=== PATIENT | female | born 1960 | race Caucasian/White ===

== ENCOUNTER 2021-10-07 12:13 | Emergency (ER) | payer OTHER ==
[2021-10-07 12:19] VITALS: BP 125/53; PULSE 76
[2021-10-07] MEDS ORDERED: traMADol 50 MG Tab PO ONE (12:46)
--- NOTE | 2021-10-07 13:18 | EDM.PDOC ---
ED HPI GENERAL MEDICAL PROBLEM - General Chief Complaint: Lower Extremity Injury/Pain Stated Complaint: L ankle pain Time Seen by Provider: 10/07/21 12:35 Source of Information: Reports: Patient History Limitations: Reports: No Limitations - History of Present Illness INITIAL COMMENTS - FREE TEXT/NARRATIVE: Rolled left ankle while walking across room at home today. No other acute changes/injuries. Painful to bear weight. - Related Data Allergies Allergy/AdvReac Type Severity Reaction Status Date / Time hydrocodone Allergy Stomach Verified 09/23/18 16:29 Upset Penicillins Allergy Hives Verified 09/23/18 16:29 NSAIDS (Non-Steroidal AdvReac Nausea and Verified 10/07/21 12:16 Anti-Inflamma Vomiting Home Meds: Home Meds Atenolol [Tenormin] 0.5 tab PO BEDTIME 04/01/14 [History] Montelukast [Singulair] 10 mg PO DAILY 04/01/14 [History] Acetaminophen [Tylenol] 650 mg PO Q6H PRN 09/23/16 [History] Albuterol [Proventil HFA] 2 puff INH Q4H PRN 09/23/16 [History] Fluticasone Propionate [Flonase] 1 spray NASBOTH DAILY 09/23/16 [History] Fluticasone Propionate [Flovent HFA 44 MCG] 2 puff INH BID 09/23/16 [History] Solifenacin Succinate [Vesicare] 10 mg PO DAILY 09/23/16 [History] Tamsulosin [Flomax] 0.4 mg PO DAILY 09/23/16 [History] diphenhydrAMINE [Benadryl] 25 mg PO QID PRN 09/23/16 [History] DULoxetine HCl [Duloxetine HCl] 30 mg PO DAILY 09/23/18 [History] Gabapentin [Neurontin] 200 mg PO BEDTIME 09/23/18 [History] atorvaSTATin Calcium [Atorvastatin Calcium] 20 mg PO DAILY 09/23/18 [History] hydroCHLOROthiazide [Hydrochlorothiazide] 12.5 mg PO DAILY 09/23/18 [History] traMADol [Ultram] 50 mg PO Q6H PRN #8 tab 10/07/21 [Rx] Past Medical History HEENT History: Reports: Impaired Vision, Sinusitis Cardiovascular History: Reports: High Cholesterol, Hypertension, Other (See Below) Other Cardiovascular History: Tachycardia Respiratory History: Reports: Sleep Apnea, Other (See Below) Other Respiratory History: Reactive Airway Disease. Gastrointestinal History: Reports: GI Bleed, Hiatal Hernia Genitourinary History: Reports: Other (See Below) Other Genitourinary History: acute lower UTI on chart as of 09/21/2016, Overactive bladder. Musculoskeletal History: Reports: Arthritis, Back Pain, Chronic, Osteoarthritis, Other (See Below) Other Musculoskeletal History: Left achilles tendinitis, OA of Right knee. Psychiatric History: Reports: Depression Endocrine/Metabolic History: Reports: Vitamin D Deficiency - Past Surgical History HEENT Surgical History: Reports: Adenoidectomy, Oral Surgery, Tonsillectomy, Ot her (See Below) Other HEENT Surgeries/Procedures: Allergic Rhinitis Cardiovascular Surgical History: Reports: Carotid Endarterectomy, Other (See Below) Other Cardiovascular Surgeries/Procedures: Right carotid GI Surgical History: Reports: Appendectomy, Cholecystectomy Female Surgical History: Reports: Lithotripsy/ESWL, Other (See Below) Other Female Surgeries/Procedures: cystoscopy with hydrodistention Musculoskeletal Surgical History: Reports: Arthroscopic Procedure, Knee Replacement Other Musculoskeletal Surgeries/Procedures:: right rotator cuff surgery. left calf achillies tendon seperation surgery Social & Family History - Tobacco Use Tobacco Use Status *Q: Never Tobacco User - Caffeine Use Caffeine Use: Reports: Soda - Recreational Drug Use Recreational Drug Use: No - Living Situation & Occupation Living situation: Reports: , with Family Occupation: Employed Review of Systems - Review of Systems Review Of Systems: See Below Constitutional: Reports: No Symptoms Eyes: Reports: No Symptoms Ears: Reports: No Symptoms Nose: Reports: No Symptoms Mouth/Throat: Reports: No Symptoms Respiratory: Reports: No Symptoms Cardiovascular: Reports: No Symptoms GI/Abdominal: Reports: No Symptoms Musculoskeletal: Reports: Other (left ankle pain) Skin: Reports: No Symptoms Neurological: Denies: Numbness, Tingling Psychiatric: Reports: No Symptoms ED EXAM, GENERAL - Physical Exam Exam: See Below Exam Limited By: No Limitations General Appearance: Alert, Mild Distress, Obese Eye Exam: Bilateral Eye: EOMI, PERRL Ears: Hearing Grossly Normal Nose: No: Nasal Deformity, Nasal Swelling, Nasal Drainage Throat/Mouth: Normal Lips, Normal Voice, No Airway Compromise Head: Atraumatic, Normocephalic Neck: Supple Respiratory/Chest: No Respiratory Distress Cardiovascular: Other (left ankle/foot vascularly intact) Extremities: Normal Capillary Refill, Other (tender over lateral ankle/mild swelling. No deformity. Good cap refill) Neurological: Alert, Oriented Psychiatric: Normal Affect, Normal Mood Skin Exam: Warm, Dry, Intact, Normal Color Course - Vital Signs Last Recorded V/S: Last Vital Signs Temp 36.1 C 10/07/21 12:18 Pulse 76 10/07/21 12:18 Resp 20 10/07/21 12:18 BP 125/53 L 10/07/21 12:18 Pulse Ox 96 10/07/21 12:18 - Orders/Labs/Meds Orders: Active Orders 24 hr Category Date Time Status Ankle Min 3V Lt [CR] Stat Exams 10/07/21 12:17 Taken Meds: Medications Discontinued Medications Generic Name Dose Route Start Last Admin Trade Name Freq PRN Reason Stop Dose Admin Tramadol HCl 50 mg 10/07/21 12:46 Tramadol 50 Mg Tab PO 10/07/21 12:47 ONETIME ONE - Re-Assessments/Exams Free Text/Narrative Re-Assessment/Exam: 10/07/21 13:29 No obvious fracture on xray. Ankle alison wrapped. Patient given pre-jose ankle splint for support and crutches. Single Tramadol. Rx for 8 additional Tramadol. To avoid weight bearing for 2 days then advance activity as tolerated. Precautions reviewed. To follow up for recheck in one week if not significantly improved. Departure - Departure Time of Disposition: 13:14 Disposition: Home, Self-Care 01 Condition: Good Clinical Impression: Left ankle injury Qualifiers: Encounter type: initial encounter Qualified Code(s): S99.912A - Unspecified injury of left ankle, initial encounter - Discharge Information *PRESCRIPTION DRUG MONITORING PROGRAM REVIEWED*: Not Applicable *COPY OF PRESCRIPTION DRUG MONITORING REPORT IN PATIENT ALEX: Not Applicable Prescriptions: traMADol [Ultram] 50 mg PO Q6H PRN #8 tab PRN Reason: Pain Instructions: Crutch Use, Adult, [id number], Ankle Sprain, [id number] Referrals: Claudia Delgado PA-C [Primary Care Provider] - Forms: ED Department Discharge Additional Instructions: Ice/rest/elevation for 2 days. Then advance activity as tolerated as we reviewed in ER. Wear the splint with activity! Remember these things take time to heal. Follow up at [facility] next week if you do not experience significant improvement within 7 days. Tylenol for pain. Take Tramadol one every 6 hours for more severe pain. Follow up otherwise as needed for problems/concerns. Sepsis Event Note (ED) - Evaluation Sepsis Screening Result: No Definite Risk - Focused Exam Vital Signs: Vital Signs Temp Pulse Resp BP Pulse Ox 10/07/21 12:18 36.1 C 76 20 125/53 L 96 - My Orders Last 24 Hours: My Active Orders 10/07/21 12:17 Ankle Min 3V Lt [CR] Stat - Assessment/Plan Last 24 Hours: My Active Orders 10/07/21 12:17 Ankle Min 3V Lt [CR] Stat
== END 2021-10-07 13:45 | disposition home or self-care (01) ==
LOC: LL.ED 12:13
DX: S99.912A Unspecified injury of left ankle, initial encounter (principal); E78.00 Pure hypercholesterolemia, unspecified; I10 Essential (primary) hypertension; M19.90 Unspecified osteoarthritis, unspecified site; Z88.5 Allergy status to narcotic agent; Z88.0 Allergy status to penicillin; Z88.8 Allergy status to other drugs, medicaments and biological substances; Z79.899 Other long term (current) drug therapy; X50.1XXA Overexertion from prolonged static or awkward postures, initial encounter
CPT/HCPCS: 73610-LT; 99283; 99283-25; A9270-GY

== ENCOUNTER 2023-12-28 09:50 | Emergency (ER) | payer OTHER ==
[2023-12-28 10:08] LABS: BASOPHILS ABSOLUTE AUTO 0.09 K/uL (0.00-0.20); BASOPHILS PERCENT AUTO 0.7 % (0.0-2.0); EOSINOPHILS ABSOLUTE AUTO 0.23 K/uL (0.00-0.50); EOSINOPHILS PERCENT AUTO 1.8 % (0.0-5.0); HEMATOCRIT 47.2 % (34.0-46.0); HEMOGLOBIN 15.7 g/dL (11.7-15.5); LYMPHOCYTES ABSOLUTE AUTO 4.02 K/uL (0.50-3.50); LYMPHOCYTES PERCENT AUTO 31.2 % (10.0-50.0); MEAN CORPUSCULAR HEMOGLOBIN 29.8 pg (28.2-33.3); MEAN CORPUSCULAR HGB CONC 33.3 g/dL (31.7-36.0); MEAN CORPUSCULAR VOLUME 89.7 fL (84.0-98.0); MONOCYTES ABSOLUTE AUTO 1.05 K/uL (0.00-1.00); MONOCYTES PERCENT AUTO 8.2 % (2.0-14.0); NEUTROPHILS ABSOLUTE AUTO 7.48 K/uL (1.40-7.00); NEUTROPHILS PERCENT AUTO 58.1 % (45.0-80.0); PLATELET COUNT,PLT 321 K/uL (150-350); RED BLOOD CELL COUNT 5.26 M/uL (3.77-5.09); RED CELL DISTRIBUTION WIDTH 13.9 % (11.2-14.1); WHITE BLOOD CELL COUNT,WBC 12.9 K/uL (4.0-10.2)
[2023-12-28] MEDS ORDERED: Sodium Chloride 0.9% 10 ML Syringe FLUSH PRN (10:08)
[2023-12-28] MEDS: Furosemide 40 MG/4 ML VIAL IVPUSH ONE (10:23)
[2023-12-28] MEDS: Albuterol/Ipratropium 3.0-0.5 MG/3 ML Neb Soln NEB ONE (10:23)
[2023-12-28 10:35] LABS: ALBUMIN 3.9 g/dL (3.4-5.0); BILIRUBIN TOTAL 0.4 mg/dL (0.2-1.0); CALCIUM 9.8 mg/dL (8.5-10.1); CREATININE 1.28 mg/dL (0.51-1.17); EST CRCL DRUG DOSING (CG) 32.31 mL/min; POTASSIUM,K 4.2 mmol/L (3.5-5.1); PROTEIN TOTAL,TP 8.2 g/dL (6.4-8.2)
[2023-12-28 10:45] LABS: CORONAVIRUS COVID-19 NAA NEGATIVE (NEGATIVE); INFLUENZA A NAA NEGATIVE (NEGATIVE); INFLUENZA B NAA NEGATIVE (NEGATIVE); RESPIRATORY SYNCYTIAL VIR NAA NEGATIVE (NEGATIVE)
[2023-12-28 10:51] LABS: PROTHROMBIN TIME 10.1 SEC (9.0-11.1)
[2023-12-28 11:40] VITALS: BP 147/101; PULSE 132
[2023-12-28] MEDS: Iopamidol 755 Mg/ML 100 ML Bottle IVPUSH ONE (13:45)
[2023-12-28] MEDS: Enoxaparin 40 MG/0.4 ML Syringe SUBCUT ONE (14:57)
== END 2023-12-28 15:20 ==
LOC: LL.ED 09:50
DX: R06.02 Shortness of breath (principal); R00.0 Tachycardia, unspecified; I10 Essential (primary) hypertension; E78.00 Pure hypercholesterolemia, unspecified; Z88.0 Allergy status to penicillin; Z88.8 Allergy status to other drugs, medicaments and biological substances; Z79.899 Other long term (current) drug therapy; Z90.49 Acquired absence of other specified parts of digestive tract
CPT/HCPCS: 0241U; 36415; 71045; 73060-RT; 80053; 83880; 84484; 85025; 85610; 93005; 94640; 96372; 96374; 99285-25; J1650; J1940; J7620-GY; Q9967

== ENCOUNTER 2025-01-15 19:29 | Inpatient (IN) | payer OTHER ==
[2025-01-15 19:51] LABS: BASOPHILS ABSOLUTE AUTO 0.03 K/uL (0.00-0.20); BASOPHILS PERCENT AUTO 0.2 % (0.0-2.0); EOSINOPHILS ABSOLUTE AUTO 0.01 K/uL (0.00-0.50); EOSINOPHILS PERCENT AUTO 0.1 % (0.0-5.0); HEMATOCRIT 42.6 % (34.0-46.0); HEMOGLOBIN 14.3 g/dL (11.7-15.5); IMMATURE GRAN ABSOLUTE AUTO 0.08 10^3/uL (0.00-0.04); IMMATURE GRAN PERCENT AUTO 0.4 % (0.0-0.4); LYMPHOCYTES ABSOLUTE AUTO 1.52 K/uL (0.50-3.50); LYMPHOCYTES PERCENT AUTO 7.7 % (10.0-50.0); MEAN CORPUSCULAR HGB CONC 33.6 g/dL (31.7-36.0); MEAN CORPUSCULAR VOLUME 86.4 fL (84.0-98.0); MONOCYTES ABSOLUTE AUTO 1.41 K/uL (0.00-1.00); MONOCYTES PERCENT AUTO 7.1 % (2.0-14.0); NEUTROPHILS ABSOLUTE AUTO 16.68 K/uL (1.40-7.00); NEUTROPHILS PERCENT AUTO 84.5 % (45.0-80.0); PLATELET COUNT,PLT 261 K/uL (150-350); RED BLOOD CELL COUNT 4.93 M/uL (3.77-5.09); RED CELL DISTRIBUTION WIDTH 13.6 % (11.2-14.1); WHITE BLOOD CELL COUNT,WBC 19.7 K/uL (4.0-10.2)
[2025-01-15] MEDS ORDERED: Non-Formulary Medication 1 Each (Levocetirizine Dihydrochloride [Xyzal] 5 MG Tablet) PO SCH (20:00)
[2025-01-15 20:10] LABS: PROTHROMBIN TIME 10.3 SEC (9.0-11.1)
[2025-01-15 20:17] LABS: ALANINE AMINOTRANSFERASE,ALT 34 U/L (12-78); ALBUMIN 3.6 g/dL (3.4-5.0); ALKALINE PHOSPHATASE 84 IU/L (46-116); ANION GAP 14.1 meq/L (7-15); ASPARTATE AMNIOTRANSFERASE,AST 33 U/L (15-37); BILIRUBIN TOTAL 0.6 mg/dL (0.2-1.0); BLOOD UREA NITROGEN,BUN 23 mg/dL (7-18); CALCIUM 9.4 mg/dL (8.5-10.1); CARBON DIOXIDE,CO2 21.9 mmol/L (21.0-32.0); CHLORIDE,CL 106 mmol/L (98-107); CREATININE 1.13 mg/dL (0.51-1.17); GLUCOSE RANDOM 150 mg/dL (70-99); MAGNESIUM 1.8 mg/dL (1.8-2.4); POTASSIUM,K 3.5 mmol/L (3.5-5.1); PROTEIN TOTAL,TP 7.6 g/dL (6.4-8.2); SODIUM,NA 142 mmol/L (136-145)
[2025-01-15] MEDS: Iopamidol 612 MG/ML 100 ML Bottle IVPUSH ONE (20:18)
[2025-01-15 20:19] LABS: ESTIMATED GFR 54 mL/min (>=60)
[2025-01-15] MEDS: Iopamidol 755 Mg/ML 100 ML Bottle IVPUSH ONE (21:10)
[2025-01-15] MEDS: Cefepime 2 GM Vial IVPUSH ONE (21:28)
[2025-01-15] MEDS ORDERED: Fluticasone NASAL Spray 16 GM Bottle NASBOTH PRN (22:36)
[2025-01-15] MEDS ORDERED: diphenhydrAMINE 25 MG Cap PO PRN (22:36)
[2025-01-15] MEDS ORDERED: Triamcinolone Acetonide 0.1% Crm 15 GM Tube TOP PRN (22:36)
[2025-01-15] MEDS ORDERED: AUTO INJCT IM PRN (22:36)
[2025-01-15] MEDS ORDERED: hydrOXYzine Pamoate 25 MG Cap PO PRN (22:36)
[2025-01-15] MEDS ORDERED: EPINEPHRINE 0.3 MG/0.3 ML IM PRN (22:36)
[2025-01-15] MEDS ORDERED: Baclofen 10 MG Tab PO PRN (22:36)
[2025-01-15] MEDS: Lactated Ringers 1,000 ML IV SCH (22:41)
[2025-01-15] MEDS: Doxycycline Monohydrate 100 MG Cap PO SCH (22:44)
[2025-01-15] MEDS ORDERED: Albuterol 6.7 GM Inhaler INH PRN (22:50)
[2025-01-15] MEDS ORDERED: Clobetasol 0.05% Crm 15 GM Tube TOP SCH (23:00)
[2025-01-15] MEDS: Ipratropium 0.06% Nasal Spray 15 ML Bottle NASBOTH SCH (23:04)
[2025-01-15] MEDS: Atenolol 25 MG Tab PO SCH (23:15)
[2025-01-15] MEDS: Warfarin 5 MG Tab PO SCH (23:16)
[2025-01-15] MEDS: Acetaminophen 325 MG Tab PO PRN (23:17)
[2025-01-16 01:45] LABS: APPEARANCE,URINE CLEAR; BILIRUBIN,URINE NEGATIVE (NEGATIVE); COLOR,URINE YELLOW; GLUCOSE,URINE NEGATIVE (NEGATIVE); KETONES,URINE NEGATIVE (NEGATIVE); LEUKOCYTE ESTERASE,URINE NEGATIVE (NEGATIVE); NITRITE,URINE NEGATIVE (NEGATIVE); OCCULT BLOOD,URINE NEGATIVE (NEGATIVE); PROTEIN,URINE NEGATIVE (NEGATIVE); UROBILINOGEN,URINE 0.2 E.U./dL (0.2-1.0)
[2025-01-16] MEDS: Cefepime 2 GM in Sodium Chloride 0.9% 100 ML IV SCH (04:47)
[2025-01-16] MEDS: Sodium Chloride 0.9% 10 ML Syringe FLUSH PRN (04:47)
[2025-01-16 07:31] LABS: BASOPHILS ABSOLUTE AUTO 0.06 K/uL (0.00-0.20); BASOPHILS PERCENT AUTO 0.3 % (0.0-2.0); EOSINOPHILS ABSOLUTE AUTO 0.02 K/uL (0.00-0.50); EOSINOPHILS PERCENT AUTO 0.1 % (0.0-5.0); HEMOGLOBIN 13.9 g/dL (11.7-15.5); IMMATURE GRAN ABSOLUTE AUTO 0.04 10^3/uL (0.00-0.04); IMMATURE GRAN PERCENT AUTO 0.2 % (0.0-0.4); LYMPHOCYTES ABSOLUTE AUTO 2.59 K/uL (0.50-3.50); LYMPHOCYTES PERCENT AUTO 13.1 % (10.0-50.0); MEAN CORPUSCULAR HGB CONC 33.9 g/dL (31.7-36.0); MEAN CORPUSCULAR VOLUME 85.6 fL (84.0-98.0); MONOCYTES ABSOLUTE AUTO 1.67 K/uL (0.00-1.00); MONOCYTES PERCENT AUTO 8.5 % (2.0-14.0); NEUTROPHILS ABSOLUTE AUTO 15.35 K/uL (1.40-7.00); NEUTROPHILS PERCENT AUTO 77.8 % (45.0-80.0); PLATELET COUNT,PLT 263 K/uL (150-350); RED BLOOD CELL COUNT 4.79 M/uL (3.77-5.09); RED CELL DISTRIBUTION WIDTH 13.5 % (11.2-14.1); WHITE BLOOD CELL COUNT,WBC 19.7 K/uL (4.0-10.2)
[2025-01-16] MEDS: Pregabalin 75 MG Cap PO SCH (07:46)
[2025-01-16] MEDS: buPROPion 150 MG Tab.ER PO SCH (07:46)
[2025-01-16] MEDS: Multivitamin Tab PO SCH ×2 (07:46→18:11)
[2025-01-16] MEDS: Fenofibrate,Micronized 134 MG Cap PO SCH (07:46)
[2025-01-16] MEDS: ARIPiprazole 10 MG Tab PO SCH (07:46)
[2025-01-16] MEDS: Folic Acid 1 MG Tab PO SCH (07:46)
[2025-01-16] MEDS: Calcium Carbonate/Vitamin D3 625 MG-125 Unit Tab PO SCH (07:46)
[2025-01-16] MEDS: Furosemide 40 MG Tab PO SCH (07:46)
[2025-01-16] MEDS: Formoterol/Mometasone 200-5 MCG 8.8 GM Inhaler INH SCH (07:47)
[2025-01-16 07:53] LABS: ALBUMIN 3.1 g/dL (3.4-5.0); BILIRUBIN TOTAL 0.5 mg/dL (0.2-1.0); CALCIUM 9.1 mg/dL (8.5-10.1); CARBON DIOXIDE,CO2 23.3 mmol/L (21.0-32.0); CREATININE 0.84 mg/dL (0.51-1.17); EST CRCL DRUG DOSING (CG) 48.6 mL/min; MAGNESIUM 1.8 mg/dL (1.8-2.4); POTASSIUM,K 3.4 mmol/L (3.5-5.1); PROTEIN TOTAL,TP 7.4 g/dL (6.4-8.2)
[2025-01-16] MEDS: Topiramate 25 MG Tab PO SCH (07:53)
[2025-01-16 07:55] LABS: ANION GAP 15.1 meq/L (7-15)
[2025-01-16] MEDS ORDERED: Non-Formulary Medication 1 Each (Azelastine Hcl [Azelastine Hcl] 137 MCG/0.137 ML Spray.Pu NS SCH (08:00)
[2025-01-16 09:35] LABS: LACTIC ACID 0.5 mmol/L (0.4-2.0)
[2025-01-16] MEDS ORDERED: cefTRIAXone 2 GM in Sodium Chloride 0.9% 100 ML IV SCH (14:15)
[2025-01-16] MEDS ORDERED: Sodium Chloride 0.65% Nasal Spray 45 ML Bottle NASBOTH PRN (15:14)
[2025-01-16] MEDS: Lactobacillus Rhamnosus GG (Probiotic) Cap PO SCH (18:10)
[2025-01-16] MEDS: Warfarin 2.5 MG Tab PO ONE (18:11)
[2025-01-16] MEDS: Cholecalciferol (Vitamin D3) 25 MCG Tab PO SCH (18:11)
[2025-01-16] MEDS: Montelukast 10 MG Tab PO SCH (20:03)
[2025-01-16] MEDS: cefTRIAXone 2 GM in Sodium Chloride 0.9% 100 ML IV SCH (22:11)
[2025-01-17 08:09] LABS: ALBUMIN 2.9 g/dL (3.4-5.0); BILIRUBIN TOTAL 0.2 mg/dL (0.2-1.0); CARBON DIOXIDE,CO2 24.8 mmol/L (21.0-32.0); CREATININE 0.78 mg/dL (0.51-1.17); EST CRCL DRUG DOSING (CG) 52.34 mL/min; MAGNESIUM 1.9 mg/dL (1.8-2.4); PROTEIN TOTAL,TP 7.3 g/dL (6.4-8.2)
[2025-01-17 08:25] LABS: BASOPHILS ABSOLUTE AUTO 0.06 K/uL (0.00-0.20); BASOPHILS PERCENT AUTO 0.5 % (0.0-2.0); EOSINOPHILS ABSOLUTE AUTO 0.18 K/uL (0.00-0.50); EOSINOPHILS PERCENT AUTO 1.5 % (0.0-5.0); HEMATOCRIT 38.4 % (34.0-46.0); HEMOGLOBIN 12.7 g/dL (11.7-15.5); IMMATURE GRAN ABSOLUTE AUTO 0.02 10^3/uL (0.00-0.04); IMMATURE GRAN PERCENT AUTO 0.2 % (0.0-0.4); LYMPHOCYTES ABSOLUTE AUTO 2.04 K/uL (0.50-3.50); LYMPHOCYTES PERCENT AUTO 16.7 % (10.0-50.0); MEAN CORPUSCULAR HEMOGLOBIN 28.5 pg (28.2-33.3); MEAN CORPUSCULAR HGB CONC 33.1 g/dL (31.7-36.0); MEAN CORPUSCULAR VOLUME 86.1 fL (84.0-98.0); MONOCYTES ABSOLUTE AUTO 0.94 K/uL (0.00-1.00); MONOCYTES PERCENT AUTO 7.7 % (2.0-14.0); NEUTROPHILS ABSOLUTE AUTO 8.97 K/uL (1.40-7.00); NEUTROPHILS PERCENT AUTO 73.4 % (45.0-80.0); PLATELET COUNT,PLT 259 K/uL (150-350); RED BLOOD CELL COUNT 4.46 M/uL (3.77-5.09); RED CELL DISTRIBUTION WIDTH 13.5 % (11.2-14.1); WHITE BLOOD CELL COUNT,WBC 12.2 K/uL (4.0-10.2)
[2025-01-17 08:26] LABS: ANION GAP 13.2 meq/L (7-15)
[2025-01-17 08:31] LABS: INR 1.1 (0.9-1.1); PROTHROMBIN TIME 11.4 SEC (9.0-11.1)
[2025-01-17] MEDS: Potassium Bicarbonate/Cit Ac 20 MEQ Effervescent Tab PO ONE (10:32)
[2025-01-17] MEDS: Atenolol 25 MG Tab PO ONE (13:58)
[2025-01-17] MEDS: Potassium Chloride 10 MEQ Tab.ER PO SCH (18:11)
[2025-01-17] MEDS: Warfarin 2.5 MG Tab PO ONE (18:13)
[2025-01-18 07:59] LABS: BASOPHILS ABSOLUTE AUTO 0.04 K/uL (0.00-0.20); BASOPHILS PERCENT AUTO 0.5 % (0.0-2.0); EOSINOPHILS ABSOLUTE AUTO 0.25 K/uL (0.00-0.50); EOSINOPHILS PERCENT AUTO 3.1 % (0.0-5.0); HEMATOCRIT 38.9 % (34.0-46.0); HEMOGLOBIN 13.1 g/dL (11.7-15.5); IMMATURE GRAN ABSOLUTE AUTO 0.02 10^3/uL (0.00-0.04); IMMATURE GRAN PERCENT AUTO 0.2 % (0.0-0.4); LYMPHOCYTES ABSOLUTE AUTO 2.37 K/uL (0.50-3.50); LYMPHOCYTES PERCENT AUTO 29.3 % (10.0-50.0); MEAN CORPUSCULAR HGB CONC 33.7 g/dL (31.7-36.0); MEAN CORPUSCULAR VOLUME 86.1 fL (84.0-98.0); MONOCYTES ABSOLUTE AUTO 0.68 K/uL (0.00-1.00); MONOCYTES PERCENT AUTO 8.4 % (2.0-14.0); NEUTROPHILS ABSOLUTE AUTO 4.74 K/uL (1.40-7.00); NEUTROPHILS PERCENT AUTO 58.5 % (45.0-80.0); PLATELET COUNT,PLT 270 K/uL (150-350); RED BLOOD CELL COUNT 4.52 M/uL (3.77-5.09); RED CELL DISTRIBUTION WIDTH 13.6 % (11.2-14.1); WHITE BLOOD CELL COUNT,WBC 8.1 K/uL (4.0-10.2)
[2025-01-18] MEDS: VILAZODONE HCL 40 MG PO SCH (08:00)
[2025-01-18 08:44] LABS: ALBUMIN 3.1 g/dL (3.4-5.0); BILIRUBIN TOTAL 0.2 mg/dL (0.2-1.0); CARBON DIOXIDE,CO2 21.5 mmol/L (21.0-32.0); CREATININE 0.76 mg/dL (0.51-1.17); EST CRCL DRUG DOSING (CG) 53.71 mL/min; MAGNESIUM 1.9 mg/dL (1.8-2.4); POTASSIUM,K 3.3 mmol/L (3.5-5.1); PROTEIN TOTAL,TP 7.6 g/dL (6.4-8.2)
[2025-01-18 08:48] LABS: INR 1.4 (0.9-1.1); PROTHROMBIN TIME 13.7 SEC (9.0-11.1)
[2025-01-18 08:49] LABS: ANION GAP 15.8 meq/L (7-15)
[2025-01-18] MEDS: Enoxaparin 100 MG/1 ML Syringe SUBCUT SCH ×2 (12:39→22:06)
[2025-01-18] MEDS: Warfarin 5 MG Tab PO ONE (17:23)
[2025-01-19 08:23] VITALS: BP 124/57; PULSE 80
[2025-01-19 09:00] LABS: BASOPHILS ABSOLUTE AUTO 0.07 K/uL (0.00-0.20); BASOPHILS PERCENT AUTO 0.8 % (0.0-2.0); EOSINOPHILS ABSOLUTE AUTO 0.24 K/uL (0.00-0.50); EOSINOPHILS PERCENT AUTO 2.7 % (0.0-5.0); HEMATOCRIT 42.4 % (34.0-46.0); HEMOGLOBIN 14.1 g/dL (11.7-15.5); IMMATURE GRAN ABSOLUTE AUTO 0.05 10^3/uL (0.00-0.04); IMMATURE GRAN PERCENT AUTO 0.6 % (0.0-0.4); LYMPHOCYTES ABSOLUTE AUTO 2.52 K/uL (0.50-3.50); LYMPHOCYTES PERCENT AUTO 28.3 % (10.0-50.0); MEAN CORPUSCULAR HEMOGLOBIN 29.1 pg (28.2-33.3); MEAN CORPUSCULAR HGB CONC 33.3 g/dL (31.7-36.0); MEAN CORPUSCULAR VOLUME 87.6 fL (84.0-98.0); MONOCYTES ABSOLUTE AUTO 0.78 K/uL (0.00-1.00); MONOCYTES PERCENT AUTO 8.8 % (2.0-14.0); NEUTROPHILS ABSOLUTE AUTO 5.24 K/uL (1.40-7.00); NEUTROPHILS PERCENT AUTO 58.8 % (45.0-80.0); PLATELET COUNT,PLT 316 K/uL (150-350); RED BLOOD CELL COUNT 4.84 M/uL (3.77-5.09); RED CELL DISTRIBUTION WIDTH 13.7 % (11.2-14.1); WHITE BLOOD CELL COUNT,WBC 8.9 K/uL (4.0-10.2)
[2025-01-19 09:15] LABS: ANION GAP 14.3 meq/L (7-15); CALCIUM 9.8 mg/dL (8.5-10.1); CARBON DIOXIDE,CO2 24.9 mmol/L (21.0-32.0); CREATININE 0.83 mg/dL (0.51-1.17); EST CRCL DRUG DOSING (CG) 49.18 mL/min; POTASSIUM,K 3.2 mmol/L (3.5-5.1)
[2025-01-19 09:17] LABS: INR 1.8 (0.9-1.1); PROTHROMBIN TIME 17.1 SEC (9.0-11.1)
[2025-01-19] MEDS: Albuterol/Ipratropium 3.0-0.5 MG/3 ML Neb Soln INH PRN (10:03)
[2025-01-19] MEDS: guaiFENesin 600 MG Tab.ER PO SCH (10:07)
[2025-01-19] MEDS: Potassium Bicarbonate/Cit Ac 20 MEQ Effervescent Tab PO ONE (17:56)
== END 2025-01-19 18:45 | disposition home or self-care (01) | DRG 194 ==
LOC: LL.ED 19:29 → UNDOADMIN 21:28 → LL.MS 21:28
PROVIDERS: ADMIT Physician Assistant; ATTEND Physician Assistant
DX: J18.9 Pneumonia, unspecified organism (principal); I50.32 Chronic diastolic (congestive) heart failure; E78.00 Pure hypercholesterolemia, unspecified; H54.7 Unspecified visual loss; I10 Essential (primary) hypertension; G47.30 Sleep apnea, unspecified; Z88.8 Allergy status to other drugs, medicaments and biological substances; F32.A Depression, unspecified; Z96.659 Presence of unspecified artificial knee joint; E78.5 Hyperlipidemia, unspecified; M81.0 Age-related osteoporosis without current pathological fracture; N32.81 Overactive bladder; K21.9 Gastro-esophageal reflux disease without esophagitis; F32.9 Major depressive disorder, single episode, unspecified; F41.9 Anxiety disorder, unspecified; M17.11 Unilateral primary osteoarthritis, right knee; M54.16 Radiculopathy, lumbar region; E55.9 Vitamin D deficiency, unspecified; J45.40 Moderate persistent asthma, uncomplicated; E87.6 Hypokalemia; Z88.6 Allergy status to analgesic agent; Z88.5 Allergy status to narcotic agent; Z88.0 Allergy status to penicillin; Z79.51 Long term (current) use of inhaled steroids; Z79.1 Long term (current) use of non-steroidal anti-inflammatories (NSAID); Z87.440 Personal history of urinary (tract) infections; Z90.49 Acquired absence of other specified parts of digestive tract; Z90.89 Acquired absence of other organs; Z98.890 Other specified postprocedural states; Z86.711 Personal history of pulmonary embolism; Z79.01 Long term (current) use of anticoagulants; Z79.899 Other long term (current) drug therapy
CPT/HCPCS: 36415; 71275; 80048; 80053; 81003; 83605; 83735; 84484; 85025; 85610; 87040; 87428-QW; 93005; 93010; 94640; 96374; 97161-GP; 99223; 99232; 99233; 99239; 99285-25; A9270-GY; J0692; J0696; J1650; J7120; Q9967

== ENCOUNTER 2025-04-14 10:56 | Emergency (ER) | payer OTHER ==
[2025-04-14] MEDS ORDERED: fentaNYL 100 MCG/2 ML SDV ONE (11:07)
[2025-04-14] MEDS ORDERED: Sodium Chloride 0.9% 10 ML Syringe FLUSH PRN (11:12)
[2025-04-14 11:55] VITALS: BP 109/57; PULSE 69
== END 2025-04-14 13:00 | disposition home or self-care (01) ==
LOC: LL.ED 10:56
DX: S80.01XA Contusion of right knee, initial encounter (principal); I10 Essential (primary) hypertension; E78.00 Pure hypercholesterolemia, unspecified; Z90.49 Acquired absence of other specified parts of digestive tract; Z79.899 Other long term (current) drug therapy; Z88.0 Allergy status to penicillin; Z88.5 Allergy status to narcotic agent; Z88.8 Allergy status to other drugs, medicaments and biological substances; W19.XXXA Unspecified fall, initial encounter
CPT/HCPCS: 73560-RT; 99283

== ENCOUNTER 2025-08-08 10:49 | Inpatient (IN) | payer MEDICARE, OTHER ==
[2025-08-08] MEDS ORDERED: Sodium Chloride 0.9% 10 ML Syringe FLUSH PRN (11:02)
[2025-08-08] MEDS: Lactated Ringers 1,000 ML IV SCH ×2 (11:07→17:25)
[2025-08-08 11:13] LABS: BASOPHILS ABSOLUTE AUTO 0.06 K/uL (0.00-0.20); BASOPHILS PERCENT AUTO 0.4 % (0.0-2.0); EOSINOPHILS ABSOLUTE AUTO 0.07 K/uL (0.00-0.50); EOSINOPHILS PERCENT AUTO 0.5 % (0.0-5.0); IMMATURE GRAN ABSOLUTE AUTO 0.01 10^3/uL (0.00-0.04); IMMATURE GRAN PERCENT AUTO 0.1 % (0.0-0.4); LYMPHOCYTES ABSOLUTE AUTO 1.07 K/uL (0.50-3.50); LYMPHOCYTES PERCENT AUTO 7.7 % (10.0-50.0); MONOCYTES ABSOLUTE AUTO 0.95 K/uL (0.00-1.00); MONOCYTES PERCENT AUTO 6.9 % (2.0-14.0); NEUTROPHILS ABSOLUTE AUTO 11.66 K/uL (1.40-7.00); NEUTROPHILS PERCENT AUTO 84.4 % (45.0-80.0); PLATELET COUNT,PLT 279 K/uL (150-350); RED BLOOD CELL COUNT 4.65 M/uL (3.77-5.09); RED CELL DISTRIBUTION WIDTH 16.4 % (11.2-14.1); WHITE BLOOD CELL COUNT,WBC 13.8 K/uL (4.0-10.2)
[2025-08-08 11:43] LABS: INR 1.1 (0.9-1.1); PTT,PARTIAL THROMBOPLSTIN TIME 32.5 SEC (23.8-34.4)
[2025-08-08 11:44] LABS: LACTIC ACID 1.2 mmol/L (0.4-2.0)
[2025-08-08 11:53] LABS: ALANINE AMINOTRANSFERASE,ALT 22 U/L (12-78); ASPARTATE AMNIOTRANSFERASE,AST 20 U/L (15-37); BILIRUBIN TOTAL 0.4 mg/dL (0.2-1.0); BLOOD UREA NITROGEN,BUN 15 mg/dL (7-18); CARBON DIOXIDE,CO2 25.7 mmol/L (21.0-32.0); GLUCOSE RANDOM 107 mg/dL (70-99); PROTEIN TOTAL,TP 7.2 g/dL (6.4-8.2)
[2025-08-08 13:57] LABS: CREATININE 0.92 mg/dL (0.51-1.17)
[2025-08-08 14:09] LABS: CHLORIDE,CL 109 mmol/L (98-107); ESTIMATED GFR 69 mL/min (>=60); POTASSIUM,K 3.9 mmol/L (3.5-5.1); SODIUM,NA 145 mmol/L (136-145)
[2025-08-08] MEDS: Calcium Carbonate/Vitamin D3 625 MG-125 Unit Tab PO SCH (17:22)
[2025-08-08] MEDS ORDERED: Non-Formulary Medication 1 Each (Fluticasone Propion/Salmeterol [Wixela 250-50 Inhub] 1 EA INH SCH (20:00)
[2025-08-08] MEDS: Sennosides/Docusate Sodium 50-8.6 MG Tab PO SCH (20:35)
[2025-08-08] MEDS: Formoterol/Mometasone 200-5 MCG 8.8 GM Inhaler INH SCH (20:36)
[2025-08-08] MEDS: Sodium Chloride 0.9% 10 ML Syringe FLUSH PRN (23:32)
[2025-08-09] MEDS: buPROPion 150 MG Tab.ER PO SCH (07:57)
[2025-08-09] MEDS: Cholecalciferol (Vitamin D3) 25 MCG Tab PO SCH (07:58)
[2025-08-09] MEDS: Fenofibrate,Micronized 134 MG Cap PO SCH (08:00)
[2025-08-09] MEDS ORDERED: Non-Formulary Medication 1 Each (Fenofibrate Nanocrystallized [Fenofibrate] 145 MG Tablet) PO SCH (08:00)
[2025-08-09] MEDS ORDERED: Lactated Ringers 1,000 ML IV SCH (08:00)
[2025-08-09] MEDS ORDERED: DARIFENACIN HYDROBROMIDE 15 MG PO SCH (08:00)
[2025-08-09] MEDS: Lactobacillus Rhamnosus GG (Probiotic) Cap PO SCH (08:03)
[2025-08-09] MEDS: Potassium Chloride 20 MEQ Tab.ER PO SCH (08:03)
[2025-08-09] MEDS: VILAZODONE HCL 20 MG PO SCH (08:11)
[2025-08-09] MEDS: VILAZODONE HCL 40 MG PO SCH (08:12)
[2025-08-09] MEDS: AZELASTINE HCL 137 MCG/0.137 ML NASBOTH SCH (08:13)
[2025-08-09] MEDS: Lactated Ringers 1,000 ML IV SCH (08:14)
[2025-08-09 08:22] LABS: BASOPHILS ABSOLUTE AUTO 0.05 K/uL (0.00-0.20); BASOPHILS PERCENT AUTO 0.4 % (0.0-2.0); EOSINOPHILS ABSOLUTE AUTO 0.02 K/uL (0.00-0.50); EOSINOPHILS PERCENT AUTO 0.2 % (0.0-5.0); IMMATURE GRAN ABSOLUTE AUTO 0.02 10^3/uL (0.00-0.04); IMMATURE GRAN PERCENT AUTO 0.2 % (0.0-0.4); LYMPHOCYTES ABSOLUTE AUTO 1.09 K/uL (0.50-3.50); LYMPHOCYTES PERCENT AUTO 8.7 % (10.0-50.0); MONOCYTES ABSOLUTE AUTO 1.02 K/uL (0.00-1.00); MONOCYTES PERCENT AUTO 8.1 % (2.0-14.0); NEUTROPHILS ABSOLUTE AUTO 10.40 K/uL (1.40-7.00); NEUTROPHILS PERCENT AUTO 82.4 % (45.0-80.0); PLATELET COUNT,PLT 230 K/uL (150-350); RED BLOOD CELL COUNT 4.48 M/uL (3.77-5.09); RED CELL DISTRIBUTION WIDTH 16.8 % (11.2-14.1); WHITE BLOOD CELL COUNT,WBC 12.6 K/uL (4.0-10.2)
[2025-08-09 08:37] LABS: ALANINE AMINOTRANSFERASE,ALT 23 U/L (12-78); ASPARTATE AMNIOTRANSFERASE,AST 22 U/L (15-37); BILIRUBIN TOTAL 0.3 mg/dL (0.2-1.0); BLOOD UREA NITROGEN,BUN 10 mg/dL (7-18); CARBON DIOXIDE,CO2 25.7 mmol/L (21.0-32.0); CHLORIDE,CL 109 mmol/L (98-107); CREATININE 0.80 mg/dL (0.51-1.17); GLUCOSE RANDOM 106 mg/dL (70-99); POTASSIUM,K 3.4 mmol/L (3.5-5.1); PROTEIN TOTAL,TP 6.7 g/dL (6.4-8.2); SODIUM,NA 144 mmol/L (136-145)
[2025-08-09 08:38] LABS: ESTIMATED GFR 82 mL/min (>=60)
[2025-08-09 08:44] LABS: LACTIC ACID 1.0 mmol/L (0.4-2.0)
[2025-08-09 18:35] LABS: BASOPHILS ABSOLUTE AUTO 0.04 K/uL (0.00-0.20); BASOPHILS PERCENT AUTO 0.4 % (0.0-2.0); EOSINOPHILS ABSOLUTE AUTO 0.02 K/uL (0.00-0.50); EOSINOPHILS PERCENT AUTO 0.2 % (0.0-5.0); IMMATURE GRAN ABSOLUTE AUTO 0.01 10^3/uL (0.00-0.04); IMMATURE GRAN PERCENT AUTO 0.1 % (0.0-0.4); LYMPHOCYTES ABSOLUTE AUTO 0.77 K/uL (0.50-3.50); LYMPHOCYTES PERCENT AUTO 6.8 % (10.0-50.0); MONOCYTES ABSOLUTE AUTO 0.92 K/uL (0.00-1.00); MONOCYTES PERCENT AUTO 8.1 % (2.0-14.0); NEUTROPHILS ABSOLUTE AUTO 9.59 K/uL (1.40-7.00); NEUTROPHILS PERCENT AUTO 84.4 % (45.0-80.0); PLATELET COUNT,PLT 225 K/uL (150-350); RED BLOOD CELL COUNT 4.19 M/uL (3.77-5.09); RED CELL DISTRIBUTION WIDTH 16.6 % (11.2-14.1); WHITE BLOOD CELL COUNT,WBC 11.4 K/uL (4.0-10.2)
[2025-08-09 18:39] LABS: BASE EXCESS ARTERIAL,POC -1 mmol/L (-2-3); HCO3 ARTERIAL,POC 21.9 mmol/L (22-26); O2 SATURATION ARTERIAL,POC 96.5 % (95-98); PCO2 ARTERIAL,POC 32 mmHg (35-48); PH ARTERIAL,POC 7.5 pH (7.35-7.45); PO2 ARTERIAL,POC 81 mmHg (83-108); TCO2 ARTERIAL,POC 20.8 mmol/L (23-27)
[2025-08-09 18:56] LABS: ALANINE AMINOTRANSFERASE,ALT 22.0 U/L (12-78); ASPARTATE AMNIOTRANSFERASE,AST 21.0 U/L (15-37); BILIRUBIN TOTAL 0.3 mg/dL (0.2-1.0); BLOOD UREA NITROGEN,BUN 8.0 mg/dL (7-18); CARBON DIOXIDE,CO2 22.4 mmol/L (21.0-32.0); CHLORIDE,CL 111.0 mmol/L (98-107); CREATININE 0.81 mg/dL (0.51-1.17); EST CRCL DRUG DOSING (CG) 49.74 mL/min; ESTIMATED GFR 81.0 mL/min (>=60); GLUCOSE RANDOM 143.0 mg/dL (70-99); POTASSIUM,K 3.4 mmol/L (3.5-5.1); PROTEIN TOTAL,TP 6.6 g/dL (6.4-8.2); SODIUM,NA 145.0 mmol/L (136-145)
[2025-08-09] MEDS: Iopamidol 612 MG/ML 100 ML Bottle IVPUSH ONE (19:05)
[2025-08-09 20:06] LABS: CORONAVIRUS COVID-19 NAA NEGATIVE (NEGATIVE); INFLUENZA A NAA NEGATIVE (NEGATIVE); INFLUENZA B NAA NEGATIVE (NEGATIVE); RESPIRATORY SYNCYTIAL VIR NAA NEGATIVE (NEGATIVE)
[2025-08-09] MEDS: Furosemide 40 MG/4 ML VIAL IVPUSH ONE (21:20)
[2025-08-09] MEDS: Nystatin Crm 30 GM Tube TOP PRN (23:28)
[2025-08-10 07:26] LABS: BASOPHILS ABSOLUTE AUTO 0.06 K/uL (0.00-0.20); BASOPHILS PERCENT AUTO 0.6 % (0.0-2.0); EOSINOPHILS ABSOLUTE AUTO 0.15 K/uL (0.00-0.50); EOSINOPHILS PERCENT AUTO 1.5 % (0.0-5.0); IMMATURE GRAN ABSOLUTE AUTO 0.01 10^3/uL (0.00-0.04); IMMATURE GRAN PERCENT AUTO 0.1 % (0.0-0.4); LYMPHOCYTES ABSOLUTE AUTO 1.31 K/uL (0.50-3.50); LYMPHOCYTES PERCENT AUTO 13.3 % (10.0-50.0); MONOCYTES ABSOLUTE AUTO 0.99 K/uL (0.00-1.00); MONOCYTES PERCENT AUTO 10.0 % (2.0-14.0); NEUTROPHILS ABSOLUTE AUTO 7.34 K/uL (1.40-7.00); NEUTROPHILS PERCENT AUTO 74.5 % (45.0-80.0); PLATELET COUNT,PLT 233 K/uL (150-350); RED BLOOD CELL COUNT 4.19 M/uL (3.77-5.09); RED CELL DISTRIBUTION WIDTH 16.5 % (11.2-14.1); WHITE BLOOD CELL COUNT,WBC 9.9 K/uL (4.0-10.2)
[2025-08-10] MEDS: Metoprolol Tartrate 5 MG/5 ML SDV IVPUSH ONE (08:03)
[2025-08-10] MEDS: Potassium Chloride 20 MEQ Tab.ER PO SCH (08:09)
[2025-08-10 08:29] LABS: ALANINE AMINOTRANSFERASE,ALT 20.0 U/L (12-78); ASPARTATE AMNIOTRANSFERASE,AST 13.0 U/L (15-37); BILIRUBIN TOTAL 0.3 mg/dL (0.2-1.0); BLOOD UREA NITROGEN,BUN 10.0 mg/dL (7-18); CARBON DIOXIDE,CO2 26.6 mmol/L (21.0-32.0); CHLORIDE,CL 108.0 mmol/L (98-107); CREATININE 0.65 mg/dL (0.51-1.17); EST CRCL DRUG DOSING (CG) 61.98 mL/min; GLUCOSE RANDOM 102.0 mg/dL (70-99); POTASSIUM,K 3.1 mmol/L (3.5-5.1); PROTEIN TOTAL,TP 6.6 g/dL (6.4-8.2); SODIUM,NA 146.0 mmol/L (136-145)
[2025-08-10 08:30] LABS: ESTIMATED GFR 98.0 mL/min (>=60)
[2025-08-10] MEDS ORDERED: VANCOmycin 1.5 GM/300 ML 1.5 GM in Premix Bag 1 BAG IV SCH (12:00)
[2025-08-11 07:57] LABS: BASOPHILS ABSOLUTE AUTO 0.04 K/uL (0.00-0.20); BASOPHILS PERCENT AUTO 0.6 % (0.0-2.0); EOSINOPHILS ABSOLUTE AUTO 0.33 K/uL (0.00-0.50); EOSINOPHILS PERCENT AUTO 4.9 % (0.0-5.0); IMMATURE GRAN ABSOLUTE AUTO 0.00 10^3/uL (0.00-0.04); IMMATURE GRAN PERCENT AUTO 0.0 % (0.0-0.4); LYMPHOCYTES ABSOLUTE AUTO 1.28 K/uL (0.50-3.50); LYMPHOCYTES PERCENT AUTO 19.0 % (10.0-50.0); MONOCYTES ABSOLUTE AUTO 0.73 K/uL (0.00-1.00); MONOCYTES PERCENT AUTO 10.8 % (2.0-14.0); NEUTROPHILS ABSOLUTE AUTO 4.36 K/uL (1.40-7.00); NEUTROPHILS PERCENT AUTO 64.7 % (45.0-80.0); PLATELET COUNT,PLT 257 K/uL (150-350); RED BLOOD CELL COUNT 4.00 M/uL (3.77-5.09); RED CELL DISTRIBUTION WIDTH 16.5 % (11.2-14.1); WHITE BLOOD CELL COUNT,WBC 6.7 K/uL (4.0-10.2)
[2025-08-11 08:19] LABS: ALANINE AMINOTRANSFERASE,ALT 17.0 U/L (12-78); ASPARTATE AMNIOTRANSFERASE,AST 15.0 U/L (15-37); BILIRUBIN TOTAL 0.2 mg/dL (0.2-1.0); BLOOD UREA NITROGEN,BUN 13.0 mg/dL (7-18); CARBON DIOXIDE,CO2 25.6 mmol/L (21.0-32.0); CHLORIDE,CL 110.0 mmol/L (98-107); CREATININE 0.69 mg/dL (0.51-1.17); EST CRCL DRUG DOSING (CG) 58.39 mL/min; GLUCOSE RANDOM 98.0 mg/dL (70-99); POTASSIUM,K 3.5 mmol/L (3.5-5.1); PROTEIN TOTAL,TP 6.7 g/dL (6.4-8.2); SODIUM,NA 146.0 mmol/L (136-145)
[2025-08-11 08:22] LABS: ESTIMATED GFR 96.0 mL/min (>=60)
[2025-08-11] MEDS: VANCOmycin 1.5 GM/300 ML 1.5 GM in Premix Bag 1 BAG IV SCH (11:37)
[2025-08-12 08:07] VITALS: BP 112/67; PULSE 85
[2025-08-12 08:35] LABS: BASOPHILS ABSOLUTE AUTO 0.03 K/uL (0.00-0.20); BASOPHILS PERCENT AUTO 0.4 % (0.0-2.0); EOSINOPHILS ABSOLUTE AUTO 0.33 K/uL (0.00-0.50); EOSINOPHILS PERCENT AUTO 4.2 % (0.0-5.0); IMMATURE GRAN ABSOLUTE AUTO 0.01 10^3/uL (0.00-0.04); IMMATURE GRAN PERCENT AUTO 0.1 % (0.0-0.4); LYMPHOCYTES ABSOLUTE AUTO 1.62 K/uL (0.50-3.50); LYMPHOCYTES PERCENT AUTO 20.7 % (10.0-50.0); MONOCYTES ABSOLUTE AUTO 0.66 K/uL (0.00-1.00); MONOCYTES PERCENT AUTO 8.4 % (2.0-14.0); NEUTROPHILS ABSOLUTE AUTO 5.18 K/uL (1.40-7.00); NEUTROPHILS PERCENT AUTO 66.2 % (45.0-80.0); PLATELET COUNT,PLT 277 K/uL (150-350); RED BLOOD CELL COUNT 4.44 M/uL (3.77-5.09); RED CELL DISTRIBUTION WIDTH 16.5 % (11.2-14.1); WHITE BLOOD CELL COUNT,WBC 7.8 K/uL (4.0-10.2)
[2025-08-12 08:55] LABS: ALANINE AMINOTRANSFERASE,ALT 19.0 U/L (12-78); ASPARTATE AMNIOTRANSFERASE,AST 16.0 U/L (15-37); BILIRUBIN TOTAL 0.2 mg/dL (0.2-1.0); BLOOD UREA NITROGEN,BUN 13.0 mg/dL (7-18); CARBON DIOXIDE,CO2 26.8 mmol/L (21.0-32.0); CHLORIDE,CL 109.0 mmol/L (98-107); CREATININE 0.71 mg/dL (0.51-1.17); EST CRCL DRUG DOSING (CG) 56.74 mL/min; GLUCOSE RANDOM 104.0 mg/dL (70-99); POTASSIUM,K 3.9 mmol/L (3.5-5.1); PROTEIN TOTAL,TP 7.4 g/dL (6.4-8.2); SODIUM,NA 145.0 mmol/L (136-145)
[2025-08-12 09:02] LABS: ESTIMATED GFR 94.0 mL/min (>=60)
[2025-08-15 17:47] LABS: HAV AB IGM Negative (Negative); HBC IGM Negative (Negative); HEP B SURG AG Negative (Negative); HEP C AB BY CIA Negative (Negative); HEP C AB BY CIA INDEX <0.02 IV
[2025-08-15 17:47] LABS: HIV 1,2 COMBO AG/AB CIA W/RFLX Negative (Negative)
== END 2025-08-12 11:36 | DRG 689 ==
LOC: LL.ED 10:49 → LL.MS 12:43
PROVIDERS: ADMIT Physician Assistant; ATTEND Physician Assistant
PROC: 3E03329 Introduction of Other Anti-infective into Peripheral Vein, Percutaneous Approach (ICD-10-PCS; principal; 2025-08-08)
PROC: 4A033R1 Measurement of Arterial Saturation, Peripheral, Percutaneous Approach (ICD-10-PCS; principal; 2025-08-08)
DX: N39.0 Urinary tract infection, site not specified (principal); N30.00 Acute cystitis without hematuria; Z88.5 Allergy status to narcotic agent; I50.33 Acute on chronic diastolic (congestive) heart failure; E87.3 Alkalosis; H54.7 Unspecified visual loss; E78.00 Pure hypercholesterolemia, unspecified; I10 Essential (primary) hypertension; G47.30 Sleep apnea, unspecified; K44.9 Diaphragmatic hernia without obstruction or gangrene; M19.90 Unspecified osteoarthritis, unspecified site; M54.9 Dorsalgia, unspecified; Z96.659 Presence of unspecified artificial knee joint; B96.20 Unspecified Escherichia coli [E. coli] as the cause of diseases classified elsewhere; I47.9 Paroxysmal tachycardia, unspecified; G89.29 Other chronic pain; E86.0 Dehydration; F32.A Depression, unspecified; E55.9 Vitamin D deficiency, unspecified; Z90.49 Acquired absence of other specified parts of digestive tract; Z88.0 Allergy status to penicillin; Z88.8 Allergy status to other drugs, medicaments and biological substances; Z79.899 Other long term (current) drug therapy; Z79.01 Long term (current) use of anticoagulants; Z98.890 Other specified postprocedural states
CPT/HCPCS: 36415; 71045; 71260; 74177; 80053; 80074; 80202; 82803; 83605; 83735; 83880; 84132; 84484; 85025; 85379; 85610; 85730; 86140; 87040; 87077; 87186; 87389; 87637; 93005; 93306; 96361; 96374; 97162-GP; 97165-GO; 99285-25; A9270-GY; J0690; J0696; J1938; J3373; J3375; J3480; J3490; J7040; J7050; J7120; Q9967